=== PATIENT | female | born 1990 | race American Indian/Alaskan Native ===

== ENCOUNTER 2017-09-30 16:05 | Emergency (ER) | payer SELFPAY ==
[2017-09-30 16:12] VITALS: BP 123/79
[2017-09-30 17:38] LABS: Bacteria,Urine 1+ /HPF (Negative); Bilirubin,Urine NEG (Negative); Blood,Urine NEG (Negative); Color,Urine Straw (Yellow); Hyaline Casts,Urine 1 /LPF; Mucus,Urine FEW /HPF; Urobilinogen,Urine < 2.0 mg/dL (<2.0)
[2017-09-30 17:41] LABS: HCG Qualitative,Urine Negative (Negative)
--- NOTE | 2017-09-30 19:47 | Emergency Department Report ---
ED Female HPI - General Chief complaint: Abdominal Pain Stated complaint: N/V Time Seen by Provider: 09/30/17 19:18 Source: patient Mode of arrival: Ambulatory Limitations: No Limitations - History of Present Illness Initial comments: 26-year-old -[place] female comes in reporting lower abdominal pelvic pain with nausea and vomiting that started yesterday afternoon. Patient states that she has burning with urination. She admits to vaginal discharge. No urinary urgency no urinary frequency no vaginal bleeding. She reports that she is sexually active with males one partner in the last 6 months unprotected. She reports a past medical history of nothing currently takes no medications and has no known drug allergies. Patient reports that she has an Exelon for control. -: days(s) (1) Location: suprapubic Severity scale (0 -10): 8 Quality: dull Consistency: constant Improves with: none Worsens with: none Are you Now?: No Last Menstrual Period: 09/05/17 EDC: 06/12/18 Associated Symptoms: vaginal discharge, other (pelvic pain) - Related Data Sexually active: Yes (1 partner in the last 6 months) : 1 Para: 1 Previous Rx's Medication Instructions Recorded Last Taken Type Fluconazole [Diflucan TAB] 200 mg PO QDAY #1 tablet 09/30/17 Unknown Rx metroNIDAZOLE [Flagyl] 500 mg PO Q8HR 7 Days #21 tablet 09/30/17 Unknown Rx Allergies Allergy/AdvReac Type Severity Reaction Status Date / Time No Known Allergies Allergy Unverified 09/30/17 16:10 ED Review of Systems ROS: Stated complaint: N/V Other details as noted in HPI ED Past Medical Hx - Past Medical History Previous Medical History?: No - Surgical History Past Surgical History?: No - Social History Smoking Status: Never Smoker Substance Use Type: None - Medications Home Medications: Home Medications Medication Instructions Recorded Confirmed Last Taken Type Fluconazole [Diflucan TAB] 200 mg PO QDAY #1 tablet 09/30/17 Unknown Rx metroNIDAZOLE [Flagyl] 500 mg PO Q8HR 7 Days #21 tablet 09/30/17 Unknown Rx ED Physical Exam - General Limitations: No Limitations General appearance: alert, in no apparent distress - Head Head exam: Present: atraumatic, normocephalic - Eye Eye exam: Present: EOMI - ENT ENT exam: Present: mucous membranes moist - Cardiovascular Cardiovascular Exam: Present: regular rate, normal rhythm. Absent: systolic murmur, diastolic murmur, rubs, gallop - GI/Abdominal GI/Abdominal exam: Present: soft, normal bowel sounds - External exam: Present: erythema, swelling Speculum exam: Present: vaginal discharge Bi-manual exam: Present: normal bi-manual exam. Absent: adnexal tenderness, adnexal mass, uterine enlargement, uterine tenderness - Back Exam Back exam: Present: normal inspection, full ROM - Neurological Exam Neurological exam: Present: alert, oriented X3 - Psychiatric Psychiatric exam: Present: normal affect, normal mood - Skin Skin exam: Present: warm, dry, intact, normal color. Absent: rash ED Course Vital Signs 09/30/17 16:10 Temperature 98.6 F Pulse Rate 99 H Respiratory 18 Rate Blood Pressure 123/79 O2 Sat by Pulse 99 Oximetry ED Medical Decision Making - Medical Decision Making Patient's been evaluated with this provider fast track. Vaginal specimens sent to lab. Patient will be treated for bacterial vaginosis as well as candidiasis. Referral to [facility]. Patient would also be treated for gonorrhea and chlamydia. Critical care attestation.: If time is entered above; I have spent that time in minutes in the direct care of this critically ill patient, excluding procedure time. ED Disposition Clinical Impression: BV (bacterial vaginosis), Candidiasis of vagina Disposition: TO HOME OR SELFCARE Is pt being admited?: No Does the pt Need Aspirin: No Condition: Stable Instructions: Abdominal Pain (ED), Bacterial Vaginosis (ED), Vulvovaginal Candidiasis (ED) Additional Instructions: Complete antibiotics as prescribed. If her symptoms persist or gets worse please follow up with her primary care provider. Please inform her sexual partner that he had been treated for STDs. I encouraged her to bring your ID to medical records here at the hospital in the next 5-7 days to obtain urine culture results for gonorrhea and chlamydia. You had been treated. Please refrain from intercourse until her cultures come back if they come back positive please refrain from intercourse until your partner is treated. I encouraged for you to follow up at the [facility] for HIV testing syphilis testing hepatitis C testing herpes testing. Prescriptions: Fluconazole [Diflucan TAB] 200 mg PO QDAY #1 tablet metroNIDAZOLE [Flagyl] 500 mg PO Q8HR 7 Days #21 tablet Referrals: PRIMARY CARE, [Primary Care Provider] - 3-5 Days Forms: STI Treatment and Prevention
[2017-09-30] MEDS ORDERED: XYLOCAINE 1% MPF 5 mL INFILTRATI ONE (21:03)
[2017-09-30] MEDS ORDERED: ZITHROMAX PO ONE (21:03)
[2017-09-30] MEDS ORDERED: ROCEPHIN IM ONE (21:03)
== END 2017-09-30 21:50 | disposition home or self-care (01) ==
LOC: ED 16:05
DX: N76.0 Acute vaginitis (principal); B96.89 Other specified bacterial agents as the cause of diseases classified elsewhere; B37.9 Candidiasis, unspecified; Z79.899 Other long term (current) drug therapy
CPT/HCPCS: 81001; 81025; 87210; 87591; 96372; 99284; J0696

== ENCOUNTER 2018-10-03 19:02 | Emergency (ER) | payer OTHER ==
--- NOTE | 2018-10-03 19:40 | Emergency Department Report ---
Blank Doc - Documentation Documentation: This is a 27-year-old female that presents with left buttock abscess. This initial assessment/diagnostic orders/clinical plan/treatment(s) is/are subject to change based on patient's health status, clinical progression and re- assessment by fellow clinical providers in the ED. Further treatment and workup at subsequent clinical providers discretion. Patient/guardians urged not to elope from the ED as their condition may be serious if not clinically assessed and managed. Initial orders include: 1- Patient sent to [facility] for further evaluation and treatment
[2018-10-03 19:43] VITALS: BP 111/74
[2018-10-03] MEDS ORDERED: LIDOCAINE VISCOUS 2% PO ONE (19:59)
--- NOTE | 2018-10-03 20:17 | Emergency Department Report ---
Abscess Boil HPI - HPI Chief Complaint: Skin/Abscess/Foreign Body Stated Complaint: CYST/ABSCESS ON BUTTOCK Time Seen by Provider: 10/03/18 19:40 Duration: 1 Day Location: Perianal Severity: Moderate History: Yes Pain, Yes Foreign Body, No Fever, No Purulent Drainage, No Numbness, No Previous History, No Insect Bite HPI: noter buttocks abcess x today perianal Home Medications: Previous Rx's Medication Instructions Recorded Last Taken Type Fluconazole [Diflucan TAB] 200 mg PO QDAY #1 tablet 09/30/17 Unknown Rx metroNIDAZOLE [Flagyl] 500 mg PO Q8HR 7 Days #21 tablet 09/30/17 Unknown Rx Hydrocortisone/Pramoxine [Procort 1 applicatio RC TID #1 tube 10/03/18 Unknown Rx 1.85%-1.15% Cream] Lidocaine [Lidocaine CREAM] 1 applicatio TP QID PRN #1 tube 10/03/18 Unknown Rx traMADol [Ultram] 50 mg PO Q6HR PRN #12 tablet 10/03/18 Unknown Rx Allergies/Adverse Reactions: Allergies Allergy/AdvReac Type Severity Reaction Status Date / Time No Known Allergies Allergy Unverified 09/30/17 16:10 ED Review of Systems ROS: Stated complaint: CYST/ABSCESS ON BUTTOCK Other details as noted in HPI Constitutional: denies: chills, fever Eyes: denies: eye pain, eye discharge, vision change ENT: denies: ear pain, throat pain Respiratory: denies: cough, shortness of breath, wheezing Cardiovascular: denies: chest pain, palpitations Endocrine: no symptoms reported Gastrointestinal: denies: abdominal pain, nausea, diarrhea, constipation, hematemesis, melena, hematochezia Genitourinary: denies: urgency, dysuria, discharge Musculoskeletal: denies: back pain, joint swelling, arthralgia Skin: denies: rash, lesions Neurological: denies: headache, weakness, paresthesias Psychiatric: denies: anxiety, depression Hematological/Lymphatic: denies: easy bleeding, easy bruising ED Past Medical Hx - Past Medical History Previous Medical History?: No - Surgical History Past Surgical History?: No - Social History Smoking Status: Never Smoker Substance Use Type: None - Medications Home Medications: Home Medications Medication Instructions Recorded Confirmed Last Taken Type Fluconazole [Diflucan TAB] 200 mg PO QDAY #1 tablet 09/30/17 Unknown Rx metroNIDAZOLE [Flagyl] 500 mg PO Q8HR 7 Days #21 tablet 09/30/17 Unknown Rx Hydrocortisone/Pramoxine [Procort 1 applicatio RC TID #1 tube 10/03/18 Unknown Rx 1.85%-1.15% Cream] Lidocaine [Lidocaine CREAM] 1 applicatio TP QID PRN #1 tube 10/03/18 Unknown Rx traMADol [Ultram] 50 mg PO Q6HR PRN #12 tablet 10/03/18 Unknown Rx ED Abscess Boil Physical Exam - Exam General: Vital signs noted. No distress. Alert and acting appropriately. this is a hemorrhoid right external nonthrombosed no bleeding no drainage no abscess ED Course Vital Signs 10/03/18 19:41 Temperature 98.7 F Pulse Rate 81 Respiratory 14 Rate Blood Pressure 111/74 O2 Sat by Pulse 99 Oximetry Critical care attestation.: If time is entered above; I have spent that time in minutes in the direct care of this critically ill patient, excluding procedure time. ED Medical Decision Making - Medical Decision Making This is a hemrrhoid plan, proctofoam, lidocaine oint, ultram follow up with pcp in 2-3 days , return to ed if syptoms worsen, pt verbalized agreement and understanding of same. ED Disposition Clinical Impression: Hemorrhoids Qualifiers: Hemorrhoid type: first degree Qualified Code(s): K64.0 - First degree hemorrhoids Disposition: DC-01 TO HOME OR SELFCARE Is pt being admited?: No Does the pt Need Aspirin: No Condition: Stable Instructions: Hemorrhoids (ED) Prescriptions: Lidocaine [Lidocaine CREAM] 1 applicatio TP QID PRN #1 tube PRN Reason: pain Hydrocortisone/Pramoxine [Procort 1.85%-1.15% Cream] 1 applicatio RC TID #1 tube traMADol [Ultram] 50 mg PO Q6HR PRN #12 tablet PRN Reason: Pain Referrals: SRINIVAS FONTAINE MD [Primary Care Provider] - 3-5 Days Forms: Work/School Release Form(ED) Time of Disposition: 20:20
== END 2018-10-03 20:25 | disposition home or self-care (01) ==
LOC: ED 19:02
DX: K62.5 Hemorrhage of anus and rectum (principal); Z79.899 Other long term (current) drug therapy
CPT/HCPCS: 99282

== ENCOUNTER 2021-01-11 08:10 | Emergency (ER) | payer SELFPAY ==
[2021-01-11 08:20] VITALS: BP 112/68
[2021-01-11] MEDS ORDERED: SODIUM CHLORIDE 0.9% 1000 ML 1,000 ML IV ONE (09:02)
[2021-01-11] MEDS ORDERED: ONDANSETRON 4 MG/2 ML INJ IV ONE (09:02)
--- NOTE | 2021-01-11 09:07 | Emergency Department Report ---
ED Abdominal Pain HPI - General Chief Complaint: Nausea/Vomiting/Diarrhea Stated Complaint: NAUSEA VOMITING WITH Time Seen by Provider: 01/11/21 09:01 Source: patient Mode of arrival: Ambulatory Limitations: No Limitations - History of Present Illness Initial Comments: Patient is 30 years old female, 18 weeks . Patient presented to the ER complaining of lower abdominal cramping associated with nausea and vomiting since this morning. Patient denied any vaginal bleeding. She also denied any vaginal discharge. Patient denied any chest pain, shortness of breath, cough, fever or chills. MD Complaint: abdominal pain Location: suprapubic Radiation: none Severity scale (0 -10): 0 Quality: cramping Associated Symptoms: nausea, vomiting - Related Data Previous Rx's Medication Instructions Recorded Last Taken Type Fluconazole [Diflucan TAB] 200 mg PO QDAY #1 tablet 09/30/17 Unknown Rx metroNIDAZOLE [Flagyl] 500 mg PO Q8HR 7 Days #21 tablet 09/30/17 Unknown Rx Hydrocortisone/Pramoxine [Procort 1 applicatio RC TID #1 tube 10/03/18 Unknown Rx 1.85%-1.15% Cream] Lidocaine [Lidocaine CREAM] 1 applicatio TP QID PRN #1 tube 10/03/18 Unknown Rx traMADoL [Ultram] 50 mg PO Q6HR PRN #12 tablet 10/03/18 Unknown Rx Allergies Allergy/AdvReac Type Severity Reaction Status Date / Time No Known Allergies Allergy Unverified 09/30/17 16:10 ED Review of Systems ROS: Stated complaint: NAUSEA VOMITING WITH Other details as noted in HPI Comment: All other systems reviewed and negative Constitutional: denies: chills, fever Respiratory: denies: cough, shortness of breath, SOB with exertion, SOB at rest Cardiovascular: denies: chest pain, palpitations Gastrointestinal: abdominal pain, nausea, vomiting. denies: diarrhea, constipation, hematemesis, hematochezia Musculoskeletal: denies: back pain Neurological: denies: headache, weakness, numbness, paresthesias, confusion ED Past Medical Hx - Social History Smoking Status: Never Smoker Substance Use Type: None - Medications Home Medications: Home Medications Medication Instructions Recorded Confirmed Last Taken Type Fluconazole [Diflucan TAB] 200 mg PO QDAY #1 tablet 09/30/17 Unknown Rx metroNIDAZOLE [Flagyl] 500 mg PO Q8HR 7 Days #21 tablet 09/30/17 Unknown Rx Hydrocortisone/Pramoxine [Procort 1 applicatio RC TID #1 tube 10/03/18 Unknown Rx 1.85%-1.15% Cream] Lidocaine [Lidocaine CREAM] 1 applicatio TP QID PRN #1 tube 10/03/18 Unknown Rx traMADoL [Ultram] 50 mg PO Q6HR PRN #12 tablet 10/03/18 Unknown Rx ED Physical Exam - General Limitations: No Limitations General appearance: alert, in no apparent distress - Head Head exam: Present: atraumatic, normocephalic, normal inspection - Eye Eye exam: Present: normal appearance, PERRL - ENT ENT exam: Present: mucous membranes dry - Neck Neck exam: Present: normal inspection, full ROM. Absent: tenderness, meningismus - Respiratory Respiratory exam: Present: normal lung sounds bilaterally - Cardiovascular Cardiovascular Exam: Present: regular rate, normal rhythm, normal heart sounds - GI/Abdominal GI/Abdominal exam: Present: soft, normal bowel sounds, other (gravid). Absent: distended, tenderness, guarding, rebound, rigid - Extremities Exam Extremities exam: Present: normal inspection, full ROM, normal capillary refill. Absent: tenderness, pedal edema, joint swelling, calf tenderness - Back Exam Back exam: Present: normal inspection, full ROM. Absent: CVA tenderness (R), CVA tenderness (L), muscle spasm, paraspinal tenderness - Neurological Exam Neurological exam: Present: alert, oriented X3, CN II-XII intact - Psychiatric Psychiatric exam: Present: normal mood - Skin Skin exam: Present: warm, intact, normal color ED Course Vital Signs 01/11/21 08:11 Temperature 98.7 F Pulse Rate 73 Respiratory 16 Rate Blood Pressure 112/68 [Right] O2 Sat by Pulse 100 Oximetry ED Medical Decision Making - Lab Data Result diagrams: 01/11/21 09:39 01/11/21 09:02 - Radiology Data Radiology results: report reviewed - Medical Decision Making Patient is 30 years old female, 18 weeks . Patient presented to the ER complaining of lower abdominal cramping associated with nausea and vomiting since this morning. Patient denied any vaginal bleeding. She also denied any vaginal discharge. Patient denied any chest pain, shortness of breath, cough, fever or chills. Patient received normal saline, Zofran. Patient stated that she is feeling much better. Labs reviewed and is unremarkable. ultrasound showed 18 weeks life into trying gestation. Patient given prescription for Zofran and advised to follow-up with her OB doctor in the next 2 to 3 days and to return to the ER if she develop any new symptoms. Critical care attestation.: If time is entered above; I have spent that time in minutes in the direct care of this critically ill patient, excluding procedure time. ED Disposition Clinical Impression: Abdominal pain affecting , Nausea and vomiting during prior to 22 weeks gestation Disposition: 01 HOME / SELF CARE / HOMELESS Is pt being admited?: No Condition: Stable Instructions: Abdominal Pain During , [id number], Nausea and Vomiting, Adult Referrals: PRIMARY CARE, [Primary Care Provider] - 3-5 Days
[2021-01-11 09:51] LABS: Basophils % (Auto) 0.4 % (0.0-1.8); Eosinophils # (Auto) 0.1 K/mm3 (0.0-0.4); Eosinophils % (Auto) 0.6 % (0.0-4.3); Hemoglobin 9.6 gm/dl (10.1-14.3); Lymphocytes # (Auto) 1.1 K/mm3 (1.2-5.4); Lymphocytes % (Auto) 11.4 % (13.4-35.0); Mean Corpuscular HGB Conc 31 % (30-34); Mean Corpuscular Volume 89 fl (79-97); Monocytes # (Auto) 0.5 K/mm3 (0.0-0.8); Monocytes % (Auto) 5.6 % (0.0-7.3); Platelet Count 352 K/mm3 (140-440); Red Blood Count 3.48 M/mm3 (3.65-5.03); Red Cell Distribution Width 16.9 % (13.2-15.2)
[2021-01-11 10:16] LABS: Alanine Aminotransferase 9 units/L (7-56); Blood Urea Nitrogen 5 mg/dL (7-17); Calcium 9.2 mg/dL (8.4-10.2); Hemolysis Index 121
[2021-01-11 10:18] LABS: BUN/Creatinine Ratio 13; Bilirubin,Direct < 0.2 mg/dL (0-0.2)
--- NOTE | 2021-01-11 10:44 | Ultrasound Report ---
ULTRASOUND OBSTETRIC COMPLETE INDICATION / CLINICAL INFORMATION: Abdominal pain, 18 weeks . Clinical Gestational Age (GA) in weeks, days: 18, 4 TECHNIQUE: Transabdominal. COMPARISON: None available. FINDINGS: NUMBER: Single PRESENTATION: transverse PLACENTA: posterior and free of the os. MATERNAL ADNEXA: No significant abnormality. AMNIOTIC FLUID VOLUME: Normal. AMNIOTIC FLUID INDEX (LANETTE) in cm (if measured): Not measured ANATOMY: organs (including the bladder, stomach, kidneys, heart, umbilical cord, diaphragm, cord inserti on, spine, and intracranial structures) are visualized and show no significant abnormality with the f ollowing exception(s): None. MEASUREMENTS: - Biparietal Diameter = 4.2 cm = 18, 5 weeks, days - Head Circumference = 15.6 cm = 18, 4 weeks, days - Abdominal Circumference = 13.0 cm = 18, 4 weeks, days - Femur Length = 2.8 cm = 18, 4 weeks, days - Estimated Weight (in grams, if calculated): 246 - Heart Rate (beats per minute): 158 ADDITIONAL FINDINGS: The cervical length is 4.3 cm with fluid noted within the cervix; additionally, there is funneling of the internal cervical os PERCENTILE ESTIMATED WEIGHT (if calculated): 45 AVERAGE ULTRASOUND AGE (AUA) in weeks, days = 18, 4 IMPRESSION: 1. Single intrauterine with AUA of 18, 4 weeks, days 2. There is cervical funneling at the internal cervical os with fluid noted in the cervical canal. Signer Name: Christos Estrada DO Signed: 01/11/2021 10:39 AM Workstation Name: [id number]
[2021-01-11 13:01] LABS: Bacteria,Urine 1+ /HPF (Negative); Bilirubin,Urine NEG (Negative); Blood,Urine NEG (Negative); Color,Urine Yellow (Yellow); Mucus,Urine 3+ /HPF
== END 2021-01-11 14:02 | disposition home or self-care (01) ==
LOC: ED 08:10
DX: O26.892 Other specified pregnancy related conditions, second trimester (principal); O21.9 Vomiting of pregnancy, unspecified; Z3A.22 22 weeks gestation of pregnancy
CPT/HCPCS: 36415; 76805; 80048; 80076; 81001; 83690; 84702; 85025; 96361; 96374; 99284; J2405; J7030; Q0162

== ENCOUNTER 2021-04-07 10:32 | Emergency (ER) | payer MEDICAID ==
[2021-04-07 10:41] VITALS: BP 105/67
== END 2021-04-07 23:07 | disposition still patient (30) ==
LOC: ED 10:32
DX: J02.9 Acute pharyngitis, unspecified (principal); Z53.21 Procedure and treatment not carried out due to patient leaving prior to being seen by health care provider
CPT/HCPCS: 99282

== ENCOUNTER 2021-04-07 12:09 | Outpatient (CLI) | payer MEDICAID ==
[2021-04-07 12:35] VITALS: BP 127/61
[2021-04-07] MEDS ORDERED: LACTATED RINGERS 500 ML IV ONE (12:37)
--- NOTE | 2021-04-07 15:10 | Ultrasound Report ---
ULTRASOUND OBSTETRIC LIMITED INDICATION / CLINICAL INFORMATION: Placenta grade. Clinical Gestational Age (GA) in weeks, days: 30, 6 TECHNIQUE: Transabdominal. COMPARISON: None available. FINDINGS: HEART RATE (beats per minute): 140 AMNIOTIC FLUID INDEX (cm) = 25 (normal = 7-24 cm) PRESENTATION: Cephalic. ADDITIONAL FINDINGS: There is grade 1 placenta IMPRESSION: 1. Grade 1 placenta. 2. Mild polyhydramnios (25 cm amniotic fluid index) Signer Name: Christos Estrada DO Signed: 04/07/2021 3:05 PM Workstation Name: [id number]
== END 2021-04-07 16:59 | disposition home or self-care (01) ==
LOC: TRG 12:09 → APU 12:10 → TRG 16:59
PROVIDERS: ATTEND Obstetrics & Gynecology
DX: Z34.93 Encounter for supervision of normal pregnancy, unspecified, third trimester (principal); Z3A.30 30 weeks gestation of pregnancy
CPT/HCPCS: 59025; 76815; 85460